=== PATIENT | male | born 1965 | race Two or more races ===

== ENCOUNTER → 2022-11-02 | Emergency (ER) | payer OTHER ==
[~2022-11-02] MED LIST: LEVSIN/SL0.125 MG SL; METFORMIN HCL1000 M2 PO; NIFEDIPINE20 MG PO; ONDANSETRON ODT8 MG PO; PEPCID AC20 MG PO; ZESTRIL40 M1 PO
== END | disposition home or self-care (01) ==
LOC: ER 23:16
DX: K29.70 Gastritis, unspecified, without bleeding (principal); R11.2 Nausea with vomiting, unspecified; E11.9 Type 2 diabetes mellitus without complications; Z79.84 Long term (current) use of oral hypoglycemic drugs; I10 Essential (primary) hypertension

== ENCOUNTER 2022-11-03 21:34 | Emergency (ER) | payer OTHER ==
[~2022-11-03] VITALS: Ht 175.3 cm; Wt 108.9 kg
[~2022-11-03 21:34] MED LIST changes: -LEVSIN/SL0.125 MG SL; -ONDANSETRON ODT8 MG PO; -PEPCID AC20 MG PO
[2022-11-03] MEDS ORDERED: ONDANSETRON ODT8 MG PO (23:59)
[2022-11-03] MEDS ORDERED: LEVSIN/SL0.125 MG SL (23:59)
[2022-11-03] MEDS ORDERED: PEPCID AC20 MG PO (23:59)
== END 2022-11-04 00:22 | disposition home or self-care (01) ==
LOC: ER 21:34
DX: K29.70 Gastritis, unspecified, without bleeding (principal); E11.9 Type 2 diabetes mellitus without complications; Z79.84 Long term (current) use of oral hypoglycemic drugs; I10 Essential (primary) hypertension